=== PATIENT | female | born 1995 | race Caucasian/White ===

== ENCOUNTER 2018-07-15 12:12 | Inpatient (IN) ==
[2018-07-15 13:41] LABS: Cocaine Ur Negative (NEGATIVE); Urine Barbiturate Negative (NEGATIVE); Urine Benzodiazepines Negative (NEGATIVE); Urine Opiates Negative (NEGATIVE); Urine PCP Negative (NEGATIVE); Urine THC Negative (NEGATIVE)
[2018-07-15] MEDS ORDERED: RINGER'S SOLUTION,LACTATED 1,000 ML IV PRN (16:46)
[2018-07-15] MEDS ORDERED: RINGER'S SOLUTION,LACTATED 1,000 ML IV ONE (16:46)
[2018-07-15] MEDS ORDERED: OXYTOCIN/DEXTROSE 5%-WATER 30 UNITS/500 ML BAG IV ONE ×2 (16:46→22:38)
[2018-07-15] MEDS ORDERED: LIDOCAINE HCL 50 ML VIAL ONE (18:25)
--- NOTE | 2018-07-15 19:06 | HP ---
Chief Complaint - Chief Complaint Date of Service: 07/15/18 Time of Service: 19:00 Chief Complaint: contractions History of Present Illness: 22 yo at 38 2/7 weeks presents to L&D complaining of contractions since early this am which have increased in intensity and frequency. This complicated by anemia and HSV carrier (no outbreaks, on suppressive tx) Rh positive Rubella immune GBS negative Medical History (Updated 12/19/17 @ 14:57 by Jose Reyes DO) HSV antigen DIF positive (Chronic) Dysmenorrhea treated with oral contraceptive (Chronic) Onset Date: 09/25/14 Allergic rhinitis Onset Date: 07/31/12 Body piercing Onset Date: Unknown Genital herpes Onset Date: Unknown Pt does not remember when last outbreak was. Tattoos Onset Date: Unknown Surgical History: Surgical History (Updated 12/15/17 @ 15:02 by Naomi Long RN) History of tonsillectomy and adenoidectomy Onset Date: 2008 Family History: Family History (Updated 12/19/17 @ 13:35 by Milagro Singh RN) Mother Hypoglycemia Father Hypertension Grandmother COPD (chronic obstructive pulmonary disease) Grandfather Liver cancer Great Grandfather Social History: Preferred Language Citizen Of [place] Smoking Status Former smoker Psych History No pertinent hx (Last Updated 07/11/18 @ 10:08 by Jose Reyes DO) No Social History Section defined Review Of Systems (GEN) - Review of Systems Generalized/Overall Review: Present: No Symptoms Reported EENTM: Present: No Symptoms Reported Respiratory: Present: No Symptoms Reported Cardiac: Present: No Symptoms Reported Abdominal: Present: Other - contractions Genitourinary: Present: Other - vaginal pressure Musculoskeletal: Present: No Symptoms Reported Neurological: Present: No Symptoms Reported Skin: Present: No Symptoms Reported Endocrine: Present: No Symptoms Reported Immunizations: IMMUNIZATION HX Immunizations Up to Date Yes History of Influenza Vaccine No Hx Pneumococcal Vaccination No Allergies/Adverse Reactions: Allergies Allergy/AdvReac Type Severity Reaction Status Date / Time No Known Allergies Allergy Verified 07/11/18 09:53 Home Medications: HOME MEDICATIONS [id number] 400 mcg-om3 35 mg-dha 25 mg-epa 5 mg-fish oil chewable tablet 2 tab PO DAILY tab 12/19/17 [Last Taken Unknown] ferrous sulfate 325 mg (65 mg iron) tablet 325 mg PO DAILY tab 05/07/18 [Last Taken Unknown] loratadine 10 mg tablet 10 mg PO DAILY 06/04/18 [Last Taken Unknown] valacyclovir 1 gram tablet 1,000 mg PO DAILY #30 tab 06/19/18 [Last Taken 07/14/18 21:00] Exam - Exam Vital Signs: Vital Signs - Last Taken Temp 36.3 C 07/15/18 12:20 Pulse 92 07/15/18 12:20 Resp 18 07/15/18 12:20 BP 132/94 H 07/15/18 12:20 Pulse Ox 96 07/15/18 12:20 Constitutional: Present: Alert, Oriented x3, Cooperative, Mild distress ENT Exam: Present: hearing grossly normal Breasts: Present: Exam deferred Respiratory: Present: lungs clear, no respiratory distress Cardiovascular/Chest: Present: regular rate, rhythm, no edema Abdomen: Present: soft, no rebound tenderness, other - gravid /Rectal: Present: Other - cervix - 6/90/-1 Extremity: Present: no pedal edema, no calf tenderness Skin Exam: Present: normal color, warm/dry, no cyanosis Neurologic: Present: alert, normal mood/affect, oriented x 3 Appearance: Present: appropriate appearance, appropriate insight Eye contact: Present: cooperative Thoughts: Present: normal thought pattern Diagnostic Studies: Laboratory Results Negative (NEGATIVE) 07/15/18 13:27 Negative (NEGATIVE) 07/15/18 13:27 Ur Phencyclidine Scrn Negative (NEGATIVE) 07/15/18 13:27 Urine Amphetamine Negative (NEGATIVE) 07/15/18 13:27 U Benzodiazepines Scrn Negative (NEGATIVE) 07/15/18 13:27 Negative (NEGATIVE) 07/15/18 13:27 Negative (NEGATIVE) 07/15/18 13:27 Assessment/Plan - Assessment/Plan (1) Anemia Problem: Acute Qualifiers: Anemia type: iron deficiency Iron deficiency anemia type: inadequate dietary iron intake Qualified Code(s): D50.8 - Other iron deficiency anemias (2) Labor established Problem: Acute (3) HSV antigen DIF positive Problem: Chronic
--- NOTE | 2018-07-15 19:09 | PN ---
Subjective - Date and Time Seen Date: 07/15/18 Time: 19:07 Objective - Vitals Vitals: Last Vital Signs Temp 36.3 C 07/15/18 12:20 Pulse 92 07/15/18 12:20 Resp 18 07/15/18 12:20 BP 132/94 H 07/15/18 12:20 Pulse Ox 96 07/15/18 12:20 Patient doing very well controlling pain without epidural Vital signs stable. FHT: 130 baseline, reassuring Contractions q 13 min Cervix: 8/90/-1, AROM-clear Impression: Intrauterine at 38 2/7 weeks in labor.Briefly discussed risk/benefits/alternatives for pain control. Patient desires pudendal nerve block. Plan: Expect normal spontaneous vaginal delivery soon. Pudendal nerve block when patient gets close to delivery Assessment/Plan - Problems/Diagnosis (1) Anemia Problem: Acute Qualifiers: Anemia type: iron deficiency Iron deficiency anemia type: inadequate dietary iron intake Qualified Code(s): D50.8 - Other iron deficiency anemias (2) Labor established Problem: Acute (3) HSV antigen DIF positive Problem: Chronic
[2018-07-15] MEDS ORDERED: LIDOCAINE HCL 50 ML VIAL IJ PRN (19:27)
[2018-07-15] MEDS ORDERED: BISACODYL 10 MG SUPP.RECT RC PRN (22:38)
[2018-07-15] MEDS ORDERED: GLYCERIN/WITCH HAZEL LEAF 40 APPL BOX TP PRN (22:38)
[2018-07-15] MEDS ORDERED: oxyCODONE HCL/ACETAMINOPHEN 1 TAB TABLET PO PRN (22:38)
[2018-07-15] MEDS ORDERED: HYDROCORTISONE 30 APPL TUBE TP PRN (22:38)
[2018-07-15] MEDS ORDERED: SENNOSIDES 8.6 MG TABLET PO PRN (22:38)
[2018-07-15] MEDS ORDERED: BENZOCAINE/MENTHOL 81 SPRAY CAN TP PRN (22:38)
--- NOTE | 2018-07-15 22:41 | OR ---
Operative Report - Dictated Report Narrative: Spontaneous vaginal delivery of viable male at 2225 on 07/15/2018 with Apgars 9 and 9, weighing 3470 g in VALERI position. Cord clamping delayed approximately 1 minute Placenta delivered complete, intact, with three vessel cord Estimated blood loss: less than 50 ml Anesthesia: epidural Lacerations: First-degree vaginal and hymenal ring laceration with no repair needed History for Definition: * The number of deliveries resulting in a live the patient experienced prior to current hospitalization * The previous delivery of live twins or any live multiple gestation is considered one live event. *If primagravida or nulliparous is documented select zero for the number of previous live births. Live Events: 0
[2018-07-15] MEDS: IBUPROFEN 800 MG TABLET PO PRN (22:54)
[2018-07-15] MEDS: oxyCODONE HCL/ACETAMINOPHEN 1 TAB TABLET PO PRN (22:54)
[2018-07-15] MEDS: DOCUSATE SODIUM 100 MG CAPSULE PO SCH (23:44)
[2018-07-16] MEDS: oxyCODONE HCL/ACETAMINOPHEN 1 TAB TABLET PO PRN ×4 (01:59→20:13)
[2018-07-16] MEDS: IBUPROFEN 800 MG TABLET PO PRN ×2 (07:42→20:13)
--- NOTE | 2018-07-16 08:40 | PN ---
Subjective - Date and Time Seen Date: 07/16/18 Time: 08:40 Objective - Vitals Vitals: Last Vital Signs Temp 36.6 C 07/16/18 07:48 Pulse 74 07/16/18 07:48 Resp 18 07/16/18 07:48 BP 131/80 07/16/18 07:48 Pulse Ox 97 07/16/18 07:48 Patient denies complaints. Lochia wnl Abdomen - soft, nontender Uterus - firm, at umbilicus - 1 No calf tenderness Impression: day #1 - s/p spontaneous vaginal delivery. Plan: Continue routine care Assessment/Plan - Problems/Diagnosis (1) Anemia Problem: Acute Qualifiers: Anemia type: iron deficiency Iron deficiency anemia type: inadequate dietary iron intake Qualified Code(s): D50.8 - Other iron deficiency anemias (2) Labor established Problem: Acute (3) HSV antigen DIF positive Problem: Chronic
[2018-07-16] MEDS: DOCUSATE SODIUM 100 MG CAPSULE PO SCH ×2 (13:01→20:14)
[2018-07-16] MEDS: PRENATAL VITS96/IRON FUM/FOLIC 1 TAB TABLET PO SCH (13:03)
[2018-07-16] MEDS: FERROUS SULFATE 325 MG TABLET PO SCH (13:03)
[2018-07-17] MEDS: DOCUSATE SODIUM 100 MG CAPSULE PO SCH (08:24)
[2018-07-17] MEDS: FERROUS SULFATE 325 MG TABLET PO SCH (08:24)
[2018-07-17] MEDS: PRENATAL VITS96/IRON FUM/FOLIC 1 TAB TABLET PO SCH (08:24)
--- NOTE | 2018-07-17 08:31 | PN ---
Subjective - Date and Time Seen Date: 07/17/18 Time: 08:30 Objective - Vitals Vitals: Last Vital Signs Temp 36.6 C 07/17/18 00:49 Pulse 71 07/17/18 00:49 Resp 16 07/17/18 00:49 BP 136/76 07/17/18 00:49 Pulse Ox 95 07/17/18 00:49 Patient denies complaints. Breast-feeding Lochia wnl Abdomen - soft, nontender Uterus - firm, at umbilicus - 2 No calf tenderness Impression: day #2 - s/p spontaneous vaginal delivery. Plan: Routine discharge instructions. consultation prior to discharge Assessment/Plan - Problems/Diagnosis (1) Anemia Problem: Acute Qualifiers: Anemia type: iron deficiency Iron deficiency anemia type: inadequate tary iron intake Qualified Code(s): D50.8 - Other iron deficiency anemias (2) Labor established Problem: Acute (3) HSV antigen DIF positive Problem: Chronic
[2018-07-17 08:40] VITALS: BP 141/84
[2018-07-17] MEDS: oxyCODONE HCL/ACETAMINOPHEN 1 TAB TABLET PO PRN ×2 (13:28→16:27)
== END 2018-07-17 17:15 | disposition home or self-care (01) | DRG 806 ==
LOC: OBCLINIC 12:12 → OB 12:37
PROVIDERS: ADMIT Obstetrics & Gynecology; ATTEND Obstetrics & Gynecology
CPT/HCPCS: 59025; 80307

== ENCOUNTER 2020-05-10 08:04 | Observation (INO) ==
[2020-05-10] MEDS ORDERED: RINGER'S SOLUTION,LACTATED 1,000 ML IV ONE (08:34)
[2020-05-10] MEDS ORDERED: PENICILLIN G POTASSIUM 5 MILLIONUNT in DEXTROSE 5 % IN WATER 100 ML IV ONE ×2 (08:35)
[2020-05-10] MEDS ORDERED: TERBUTALINE SULFATE 1 MG/ML VIAL SC ONE ×2 (08:35→09:53)
[2020-05-10 09:52] LABS: Urine Appearance Clear (CLEAR); Urine Bilirubin Negative (NEGATIVE); Urine Blood 25 /ul (NEGATIVE); Urine Color Yellow; Urine Ketone Negative (NEGATIVE)
[2020-05-10 09:53] LABS: Urine Bacteria None Seen; Urine Nitrite Negative (NEGATIVE); Urine Protein Negative (NEGATIVE); Urine RBC 0-5 /hpf (0-5); Urine Specific Gravity 1.015 SP.GR. (1.005-1.010); Urine Urobilinogen Normal (NORMAL); Urine WBC 0-5 /hpf (0-5)
[2020-05-10 10:28] LABS: Cocaine Ur Negative (NEGATIVE); Urine Barbiturate Negative (NEGATIVE); Urine Benzodiazepines Negative (NEGATIVE); Urine Opiates Negative (NEGATIVE); Urine PCP Negative (NEGATIVE); Urine THC Negative (NEGATIVE)
--- NOTE | 2020-05-10 12:10 | HP ---
Chief Complaint - Chief Complaint Date of Service: 05/10/20 Time of Service: 11:58 Chief Complaint: contractions of increasing intensity History of Present Illness: 24 yo at 35w4d presents to L&D with complaint of contractions of increasi ng intensity since around 0200 this am which began shortly after having sex. She denies vaginal bleeding, LOF, trauma, N/V/F/C, or decreased FM. This complicated by anemia, 1st trimester subchorionic hemorrhage, HSV carrier (no lesions), THC use in 1st trimester. Rh positive Rubella immune GBS negative on 03/14/19, Current cx pending. Medical History (Last Reviewed 05/10/20 @ 12:01 by Jose Reyes DO) Anemia affecting (Acute) Onset Date: ~03/23/20 Subchorionic hemorrhage (Acute) 2.55cm x 0.92cm just above inner cervical os (11/07/19) Eczema (Suspected) HSV antigen DIF positive (Chronic) Allergic rhinitis Onset Date: 07/31/12 Body piercing Onset Date: Unknown Genital herpes Onset Date: Unknown Pt does not remember when last outbreak was. Tattoos Onset Date: Unknown Dysmenorrhea treated with oral contraceptive (Resolved) Onset Date: 09/25/14 Surgical History: Surgical History (Last Reviewed 05/10/20 @ 12:01 by Jose Reyes DO) History of tonsillectomy and adenoidectomy Onset Date: 2008 Family History: Family History (Last Reviewed 05/10/20 @ 12:01 by Jose Reyes DO) Mother Hypoglycemia Father Hypertension Grandmother COPD (chronic obstructive pulmonary disease) Grandfather Liver cancer Great Grandfather Social History: (Last Reviewed 05/10/20 @ 12:01 by Jose Reyes DO) Social History: adopted: No Marital status: Single household members: significant other number of children: 1 current occupational status: employed current occupation: [employer] Manager current occupational exposures/hazards: No Highest level of school completed/degree received: high school graduate Sexually Active: Yes Service: No Tobacco: Smoking Status: Never smoker Alcohol: alcohol intake: former alcohol intake frequency: a few times a month details: No alcohol since + UPT Substance Use: substance use type: marijuana Dietary Habits: caffeine: Yes Type: carbonated beverages Pets: pets and animals: cat(s) Exercise: frequency: does not exercise Mahnaz/Advent: agree to transfusion: Yes Review Of Systems (GEN) - Review of Systems Generalized/Overall Review: Present: No Symptoms Reported EENTM: Present: No Symptoms Reported Respiratory: Present: No Symptoms Reported Cardiac: Present: No Symptoms Reported Abdominal: Present: Abdominal Pain - contractions. Absent: Nausea, Vomiting, Constipation Genitourinary: Present: No Symptoms Reported Musculoskeletal: Present: No Symptoms Reported Neurological: Present: No Symptoms Reported Skin: Present: No Symptoms Reported Endocrine: Present: No Symptoms Reported Immunizations: IMMUNIZATION HX Immunizations Up to Date Yes History of Influenza Vaccine Yes Hx Pneumococcal Vaccination No Allergies/Adverse Reactions: Allergies Allergy/AdvReac Type Severity Reaction Status Date / Time No Known Allergies Allergy Verified 05/10/20 08:15 Home Medications: HOME MEDICATIONS Vits96/Iron Fum/Folic [ S] 1 tab PO DAILY 03/14/20 [Last Taken Unknown] ferrous sulfate 325 mg (65 mg iron) tablet 325 mg PO DAILY 05/05/20 [Last Taken Unknown] valacyclovir 500 mg tablet 500 mg PO BID #60 tab 05/05/20 [Last Taken 05/10/20 07:30] Exam - Exam Vital Signs: Vital Signs - Last Taken Temp 37.1 C 05/10/20 08:15 Pulse 92 05/10/20 08:15 Resp 16 05/10/20 08:15 BP 132/80 05/10/20 08:15 Pulse Ox 100 05/10/20 08:15 Constitutional: Present: Alert, Oriented x3, Cooperative, Mild distress ENT Exam: Present: hearing grossly normal Neck: Present: trachea midline. Absent: thyromegaly Back Exam: Present: no CVA tenderness Breasts: Present: Exam deferred Respiratory: Present: lungs clear, no respiratory distress Cardiovascular/Chest: Present: normal peripheral pulses, regular rate, rhythm, no edema Abdomen: Present: soft, nontender, no rebound tenderness /Rectal: Present: Other - Cervix changed from 1-2 to 3-4cm over the course of 2 hours per nurse's exam. Extremity: Present: non-tender, no pedal edema, no calf tenderness Skin Exam: Present: normal color, warm/dry, no cyanosis Lymphatic: Present: no adenopathy Neurologic: Present: alert, normal mood/affect, oriented x 3 Appearance: Present: appropriate appearance, appropriate insight, no memory impairment Eye contact: Present: cooperative, good eye contact Thoughts: Present: normal thought pattern, normal mood /affect Diagnostic Studies: Abnormal Lab Results 05/10/20 Range/Units 08:21 Urine Blood 25 H (NEGATIVE) /ul Laboratory Results Urine Color Yellow 05/10/20 08:21 Urine Appearance Clear (CLEAR) 05/10/20 08:21 Urine pH 7.0 pH (5.0-7.0) 05/10/20 08:21 Ur Specific [place] 1.015 SP.GR. (1.005-1.010) 05/10/20 08:21 Urine Protein Negative mg/dL (NEGATIVE) 05/10/20 08:21 Urine Glucose (UA) Negative mg/dL (NEGATIVE) 05/10/20 08:21 Urine Ketones Negative mg/dL (NEGATIVE) 05/10/20 08:21 Urine Blood 25 /ul (NEGATIVE) H 05/10/20 08:21 Urine Nitrate Negative (NEGATIVE) 05/10/20 08:21 Urine Bilirubin Negative mg/dl (NEGATIVE) 05/10/20 08:21 Urine Urobilinogen Normal EU/dl (NORMAL) 05/10/20 08:21 Ur Leukocyte Esterase Negative /ul (NEGATIVE) 05/10/20 08:21 Urine RBC 0-5 /hpf (0-5) 05/10/20 08:21 Urine WBC 0-5 /hpf (0-5) 05/10/20 08:21 Ur Epithelial Cells 0-5 /hpf (0-5) 05/10/20 08:21 Urine Bacteria None seen (NONE) 05/10/20 08:21 Urine Opiates Screen Negative (NEGATIVE) 05/10/20 10:16 Barbiturate Screen Negative (NEGATIVE) 05/10/20 10:16 Ur Phencyclidine Scrn Negative (NEGATIVE) 05/10/20 10:16 Urine Amphetamine Negative (NEGATIVE) 05/10/20 10:16 U Benzodiazepines Scrn Negative (NEGATIVE) 05/10/20 10:16 Urine Cocaine Screen Negative (NEGATIVE) 05/10/20 10:16 Urine Marijuana (THC) Negative (NEGATIVE) 05/10/20 10:16 Assessment/Plan - Assessment/Plan (1) labor Assessment: Patient responds temporarily with terbutaline, but continues to have increasing intensity of contractions. Will attempt transfer to [facility] if patient remains stable enough for transfer. Started on IV PCN for GBS prophylaxis - received 5 million units at 0854. GBS cx pending. Problem: Acute Qualifiers: labor trimester: third trimester labor delivery status: without delivery Qualified Code(s): O60.03 - labor without delivery, third trimester (2) Marijuana use Assessment: UDS negative on admission today. Problem: Resolved (3) Anemia affecting Problem: Chronic Qualifiers: Trimester: third trimester Qualified Code(s): O99.013 - Anemia complicating , third trimester (4) Subchorionic hemorrhage Problem: Resolved Qualifiers: Fetus number: single or unspecified fetus Trimester: first trimester Qualified Code(s): O41.8X10 - Other specified disorders of amniotic fluid and membranes, first trimester, not applicable or unspecified; O46.8X1 - Other antepartum hemorrhage, first trimester (5) HSV antigen DIF positive Assessment: Taking Valtrex 500mg BID for prophylaxis, last dose this am Problem: Chronic
[2020-05-10] MEDS ORDERED: PENICILLIN G POTASSIUM 2.5 MILLIONUNT in DEXTROSE 5 % IN WATER 100 ML IV ONE ×2 (12:45)
[2020-05-10] MEDS ORDERED: RINGER'S SOLUTION,LACTATED 1,000 ML IV PRN (13:04)
--- NOTE | 2020-05-10 13:04 | PN ---
Progess Note - Interim Date: 05/10/20 Time: 12:58 Narrative: 05/10/20 12:58 Pt states contractions are becoming less painful. Vitals stable, P 113, BP 119/72 Abd - soft, NT Cervix 4/75/-1, very posterior FHT 150, reassuring A/P: labor - symptoms improving, but do to advanced cervical dilation in a multiparous patient will defer transfer to [facility]. Continue IV PCN till GBS cx back or contractions resolve. Will try a dose of nifedipine.
[2020-05-10] MEDS ORDERED: BETAMETHASONE ACETATE,SOD PHOS 6 MG/ML VIAL IM SCH (13:15)
[2020-05-10] MEDS ORDERED: NIFEdipine 10 MG CAPSULE PO SCH (13:15)
[2020-05-10] MEDS ORDERED: PRENATAL VITS96/IRON FUM/FOLIC 1 TAB TABLET PO SCH (17:00)
[2020-05-10] MEDS ORDERED: FERROUS SULFATE 325 MG TABLET PO SCH (17:00)
[2020-05-10] MEDS ORDERED: PENICILLIN G POTASSIUM 2.5 MILLIONUNT in DEXTROSE 5 % IN WATER 100 ML IV SCH ×2 (17:13)
[2020-05-10] MEDS ORDERED: NIFEdipine 10 MG CAPSULE PO ONE (18:32)
[2020-05-10 18:39] VITALS: BP 108/64
[2020-05-10] MEDS ORDERED: valACYclovir HCL 500 MG TABLET PO SCH (21:00)
--- NOTE | 2020-05-11 08:54 | DS ---
OB Discharge Summary (1) labor Status: Resolved Qualifiers: labor trimester: third trimester labor delivery status: without delivery Qualified Code(s): O60.03 - labor without delivery, third trimester (2) Marijuana use Status: Resolved (3) Anemia affecting Status: Chronic Qualifiers: Trimester: third trimester Qualified Code(s): O99.013 - Anemia complicating , third trimester (4) Subchorionic hemorrhage Status: Resolved Qualifiers: Fetus number: single or unspecified fetus Trimester: first trimester Qualified Code(s): O41.8X10 - Other specified disorders of amniotic fluid and membranes, first trimester, not applicable or unspecified; O46.8X1 - Other antepartum hemorrhage, first trimester (5) HSV antigen DIF positive Status: Chronic :: 3 Para:: 1 Gestational weeks:: 35 Gestational days:: 4 Intrapartum Procedures: Undelivered, Other - IV antibiotics, tocolytics, and betamethsone given. Intensive monitoring. /OP Complications: No Complications Discharge Diagnosis: Premature Labor - Discharge Information Date of Discharge: 05/10/20 Hospital Course: 24 yo at 35w4d was admitted for labor which began shortly after having sexual intercourse. She made cervical change from 1-2/60/-2 to 4/75/-1 over the course of 3 hours but made no further cervical change for the next 8+ hours. She received 2 doses of terbutaline 0.25mg SQ and later nifedipine 30mg PO x 1 followed 4 hours later by 10mg PO x 1. Her contractions decreased in intensity and frequency and with no further cervical change, she was discharged to home in stable condition with instructions to f/u on 05/11/20 1330 for her 2nd dose of betamethasone. Discharge Location: Home Disposition: Home self-care Condition: Good Activity on Discharge:: Activity as tolerated, Pelvic Rest Discharge Diet: General/regular food Complete Home Medications List: Complete Home Medication List: Vits96/Iron Fum/Folic [ S] 1 tab PO DAILY 03/14/20 ferrous sulfate 325 mg (65 mg iron) tablet 325 mg PO DAILY 05/05/20 valacyclovir 500 mg tablet 500 mg PO BID #60 tab 05/05/20 - Plan Discharge to:: Home Follow up in office in:: Other - 1 day. Follow Up Appointment:: 05/11/20 1300 - Information Infant Complications: None
== END 2020-05-10 20:40 | disposition home or self-care (01) ==
LOC: OB 08:04 → OBCLINIC 08:04
PROVIDERS: ADMIT Obstetrics & Gynecology; ATTEND Obstetrics & Gynecology
DX: B00.9 Herpesviral infection, unspecified; O60.03 Preterm labor without delivery, third trimester; Z3A.35 35 weeks gestation of pregnancy; O99.013 Anemia complicating pregnancy, third trimester

== ENCOUNTER 2020-06-03 00:01 | Inpatient (IN) ==
[2020-06-03] MEDS ORDERED: ONDANSETRON 4 MG TAB.RAPDIS PO PRN (00:14)
[2020-06-03] MEDS ORDERED: OXYTOCIN/0.9 % SODIUM CHLORIDE 30 UNITS/500 ML BAG IV ONE ×2 (00:14→07:39)
[2020-06-03] MEDS ORDERED: RINGER'S SOLUTION,LACTATED 1,000 ML IV ONE (00:14)
[2020-06-03 01:21] LABS: Cocaine Ur Negative (NEGATIVE); Urine Barbiturate Negative (NEGATIVE); Urine Benzodiazepines Negative (NEGATIVE); Urine Opiates Negative (NEGATIVE); Urine PCP Negative (NEGATIVE); Urine THC Negative (NEGATIVE)
--- NOTE | 2020-06-03 06:40 | HP ---
Chief Complaint - Chief Complaint Date of Service: 06/03/20 Time of Service: 06:18 Chief Complaint: elective induction of labor History of Present Illness: 24 yo at 39 wks admitted for elective induction of labor. This complicated by anemia, eczema, HSV carrier, PTL at 35wks, and THC use in 1st trimester. Rh positive Rubella immune GBS negative Medical History (Last Reviewed 06/03/20 @ 06:30 by Jose Reyes DO) labor (Resolved) Marijuana use (Resolved) Anemia affecting (Chronic) Onset Date: ~03/23/20 Subchorionic hemorrhage (Resolved) 2.55cm x 0.92cm just above inner cervical os (11/07/19) Eczema (Suspected) HSV antigen DIF positive (Chronic) Allergic rhinitis Onset Date: 07/31/12 Body piercing Onset Date: Unknown Genital herpes Onset Date: Unknown Pt does not remember when last outbreak was. Tattoos Onset Date: Unknown Dysmenorrhea treated with oral contraceptive (Resolved) Onset Date: 09/25/14 Surgical History: Surgical History (Last Reviewed 06/03/20 @ 06:30 by Jose Reyes DO) History of tonsillectomy and adenoidectomy Onset Date: 2008 Family History: Family History (Last Reviewed 06/03/20 @ 06:30 by Jose Reyes DO) Mother Hypoglycemia Father Hypertension Grandmother COPD (chronic obstructive pulmonary disease) Grandfather Liver cancer Great Grandfather Social History: (Last Reviewed 06/03/20 @ 06:30 by Jose Reyes DO) Social History: adopted: No Marital status: Single household members: significant other number of children: 1 current occupational status: 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/hazards: No Highest level of school completed/degree received: high school graduate Sexually Active: Yes Service: No Tobacco: Smoking Status: Never smoker Alcohol: alcohol intake: former alcohol intake frequency: a few times a month details: No alcohol since + UPT Substance Use: substance use type: marijuana Dietary Habits: caffeine: Yes Type: carbonated beverages Pets: pets and animals: cat(s) Exercise: frequency: does not exercise Mahnaz/Zoroastrian: agree to transfusion: Yes Review Of Systems (GEN) - Review of Systems Generalized/Overall Review: Present: No Symptoms Reported EENTM: Present: No Symptoms Reported Respiratory: Present: No Symptoms Reported Cardiac: Present: No Symptoms Reported Abdominal: Present: No Symptoms Reported Genitourinary: Present: No Symptoms Reported Musculoskeletal: Present: No Symptoms Reported Neurological: Present: No Symptoms Reported Skin: Present: No Symptoms Reported Endocrine: Present: No Symptoms Reported Immunizations: IMMUNIZATION HX Immunizations Up to Date Yes History of Influenza Vaccine Yes Hx Pneumococcal Vaccination No Allergies/Adverse Reactions: Allergies Allergy/AdvReac Type Severity Reaction Status Date / Time No Known Allergies Allergy Verified 06/02/20 13:57 Home Medications: HOME MEDICATIONS Vits96/Iron Fum/Folic [ S] 1 tab PO DAILY 03/14/20 [Last Taken 06/02/20 08:00] ferrous sulfate 325 mg (65 mg iron) tablet 325 mg PO DAILY 05/05/20 [Last Taken 06/02/20 08:00] valacyclovir 500 mg tablet 500 mg PO BID #60 tab 05/05/20 [Last Taken 06/02/20 08:00] breast pump See Rx Instructions .ROUTE .MEDSUPPLY #1 ea 05/26/20 [Last Taken Unknown] Exam - Exam Vital Signs: Vital Signs - Last Taken Temp 37.0 C 06/03/20 01:00 Pulse 103 H 06/03/20 01:00 Resp 16 06/03/20 01:00 BP 121/70 06/03/20 01:00 Pulse Ox 96 06/03/20 01:00 Constitutional: Present: Alert, Oriented x3, Cooperative ENT Exam: Present: hearing grossly normal Neck: Present: trachea midline. Absent: thyromegaly Breasts: Present: Exam deferred Respiratory: Present: lungs clear Cardiovascular/Chest: Present: normal peripheral pulses, regular rate, rhythm, no edema Abdomen: Present: Normal bowel sounds, soft, no rebound tenderness, other - gravid /Rectal: Present: Other - Cervix 4/60/-2 Extremity: Present: no pedal edema, no calf tenderness Skin Exam: Present: normal color, warm/dry, no cyanosis Lymphatic: Present: no adenopathy Neurologic: Present: alert, normal mood/affect Appearance: Present: appropriate appearance, appropriate insight Eye contact: Present: cooperative Thoughts: Present: normal thought pattern, normal mood /affect Diagnostic Studies: Laboratory Results Urine Opiates Screen Negative (NEGATIVE) 06/03/20 00:21 Barbiturate Screen Negative (NEGATIVE) 06/03/20 00:21 Ur Phencyclidine Scrn Negative (NEGATIVE) 06/03/20 00:21 Urine Amphetamine Negative (NEGATIVE) 06/03/20 00:21 U Benzodiazepines Scrn Negative (NEGATIVE) 06/03/20 00:21 Urine Cocaine Screen Negative (NEGATIVE) 06/03/20 00:21 Urine Marijuana (THC) Negative (NEGATIVE) 06/03/20 00:21 Assessment/Plan - Assessment/Plan (1) Elective induction of labor planned Assessment: Admit for pitocin induction of labor. Epidural PRN. Problem: Acute (2) Marijuana use Problem: Resolved (3) Anemia affecting Problem: Chronic Qualifiers: Trimester: third trimester Qualified Code(s): O99.013 - Anemia complicating , third trimester (4) Eczema Problem: Inactive Qualifiers: (5) HSV antigen DIF positive Problem: Chronic (6) labor Problem: Resolved Qualifiers: labor trimester: third trimester labor delivery status: without delivery Qualified Code(s): O60.03 - labor without delivery, third trimester
[2020-06-03] MEDS ORDERED: oxyCODONE HCL/ACETAMINOPHEN 1 TAB TABLET ONE (07:36)
[2020-06-03] MEDS ORDERED: IBUPROFEN 800 MG TABLET ONE (07:36)
--- NOTE | 2020-06-03 07:36 | PN ---
Progess Note - Interim Date: 06/03/20 Time: 06:10 Narrative: 06/03/20 07:35 Patient rating contractions 8 out of 10 Vital signs stable. Pitocin at 4 mu/min. FHT: 140 baseline, reassuring contractions q 2-3 min Cervix: 7-8/80/-2, AROM-clear Impression: Intrauterine at 39 weeks in labor Plan: Continue present plan
--- NOTE | 2020-06-03 07:37 | OR ---
Operative Report - Dictated Report Narrative: Spontaneous vaginal delivery of viable male at 0721 on 06/03/2020 with Apgars 5 and 8, weighing 3622 g in JIGAR position. Cord clamping delayed approximately 30 seconds Placenta delivered complete, intact, with three vessel cord Estimated blood loss: Less than 50 ml Anesthesia: None Lacerations: None
[2020-06-03] MEDS ORDERED: IBUPROFEN 800 MG TABLET PO PRN (07:39)
[2020-06-03] MEDS ORDERED: SENNOSIDES 8.6 MG TABLET PO PRN (07:39)
[2020-06-03] MEDS ORDERED: BENZOCAINE/MENTHOL 81 SPRAY CAN TP PRN (07:39)
[2020-06-03] MEDS ORDERED: GLYCERIN/WITCH HAZEL LEAF 40 APPL BOX TP PRN (07:39)
[2020-06-03] MEDS ORDERED: HYDROCORTISONE 30 APPL TUBE TP PRN (07:39)
[2020-06-03] MEDS ORDERED: BISACODYL 10 MG SUPP.RECT RC PRN (07:39)
[2020-06-03] MEDS ORDERED: [UNRECOGNIZED DRUG - SUPPLY] TP PRN (07:45)
[2020-06-03] MEDS: IBUPROFEN 800 MG TABLET PO PRN ×2 (07:48→18:27)
[2020-06-03] MEDS: oxyCODONE HCL/ACETAMINOPHEN 1 TAB TABLET PO PRN ×2 (07:48→23:06)
[2020-06-03] MEDS: FERROUS SULFATE 325 MG TABLET PO SCH (12:25)
[2020-06-03] MEDS: DOCUSATE SODIUM 100 MG CAPSULE PO SCH ×2 (12:25→22:39)
[2020-06-03] MEDS: PRENATAL VITS96/IRON FUM/FOLIC 1 TAB TABLET PO SCH (12:26)
[2020-06-04] MEDS: oxyCODONE HCL/ACETAMINOPHEN 1 TAB TABLET PO PRN ×2 (07:35→20:39)
--- NOTE | 2020-06-04 08:02 | PN ---
Subjective - Date and Time Seen Date: 06/04/20 Time: 07:15 Objective - Vitals Vitals: Last Vital Signs Temp 36.5 C 06/04/20 01:24 Pulse 68 06/04/20 01:24 Resp 16 06/04/20 01:24 BP 111/59 06/04/20 01:24 Pulse Ox 98 06/04/20 01:24 Patient denies complaints. Breast-feeding. Lochia wnl abdomen - soft, nontender Uterus -firm, at umbilicus - 1 No calf tenderness Impression: day #1 - s/p spontaneous vaginal delivery. Plan: Continue routine care Assessment/Plan - Problems/Diagnosis (1) Elective induction of labor planned Problem: Acute (2) Marijuana use Problem: Resolved (3) Anemia affecting Problem: Chronic Qualifiers: Trimester: third trimester Qualified Code(s): O99.013 - Anemia complicating , third trimester (4) Eczema Problem: Inactive Qualifiers: (5) HSV antigen DIF positive Problem: Chronic (6) labor Problem: Resolved Qualifiers: labor trimester: third trimester labor delivery status: without delivery Qualified Code(s): O60.03 - labor without delivery, third trimester
[2020-06-04] MEDS: DOCUSATE SODIUM 100 MG CAPSULE PO SCH (13:56)
[2020-06-04] MEDS: PRENATAL VITS96/IRON FUM/FOLIC 1 TAB TABLET PO SCH (13:57)
[2020-06-04] MEDS: FERROUS SULFATE 325 MG TABLET PO SCH (13:57)
[2020-06-04] MEDS: IBUPROFEN 800 MG TABLET PO PRN (20:39)
--- NOTE | 2020-06-04 20:43 | DS ---
OB Discharge Summary (1) Elective induction of labor planned Status: Resolved (2) Marijuana use Status: Resolved (3) Anemia affecting Status: Chronic Qualifiers: Trimester: third trimester Qualified Code(s): O99.013 - Anemia complicating , third trimester (4) Eczema Status: Inactive Qualifiers: (5) HSV antigen DIF positive Status: Chronic (6) labor Status: Resolved Qualifiers: labor trimester: third trimester labor delivery status: without delivery Qualified Code(s): O60.03 - labor without delivery, third trimester Delivery Date: 06/03/20 Delivery Time: 07:21 :: 3 Para:: 2 Gestational weeks:: 39 Gestational days:: 0 Intrapartum Procedures: Spontaneous Vaginal Delivery /OP Complications: No Complications Discharge Diagnosis: Term -Delivered - Discharge Information Date of Discharge: 06/05/20 Hospital Course: 24 yo G3 now P2012 admitted at 39 weeks for elective pitocin induction of labor. Her labor and course were uncomplicated. Discharge Location: Home Disposition: Home self-care Condition: Good Activity on Discharge:: Activity as tolerated, Pelvic Rest Discharge Diet: General/regular food Prescriptions (Any new or edited meds): Ibuprofen [Motrin] 200 - 800 mg PO Q6H PRN #100 tab PRN Reason: Pain Complete Home Medications List: Complete Home Medication List: Vits96/Iron Fum/Folic [ S] 1 tab PO DAILY 03/14/20 ferrous sulfate 325 mg (65 mg iron) tablet 325 mg PO DAILY 05/05/20 breast pump See Rx Instructions .ROUTE .MEDSUPPLY #1 ea 05/26/20 Ferrous Sulfate 325 mg PO DAILY tab 06/04/20 Ibuprofen [Motrin] 200 - 800 mg PO Q6H PRN #100 tab 06/04/20 - Plan Discharge to:: Home Follow up in office in:: 3-4 weeks - Information Weight (Grams): 3,622 Sex: Male Score 1 min: 5 Score 5 min: 8 Infant Complications: Other Other Complications: respiratory distress
--- NOTE | 2020-06-05 07:28 | PN ---
Subjective - Date and Time Seen Date: 06/05/20 Time: 07:28 Objective - Vitals Vitals: Last Vital Signs Temp 36.6 C 06/04/20 23:36 Pulse 84 06/04/20 23:36 Resp 16 06/04/20 23:36 BP 120/74 06/04/20 23:36 Pulse Ox 98 06/04/20 23:36 Patient denies complaints. Breast-feeding Lochia wnl abdomen - soft, nontender Uterus -firm, at umbilicus - 2 No calf tenderness Impression: day #2 - s/p spontaneous vaginal delivery. Plan: Routine discharge instructions Assessment/Plan - Problems/Diagnosis (1) Elective induction of labor planned Problem: Resolved (2) Marijuana use Problem: Resolved (3) Anemia affecting Problem: Chronic Qualifiers: Trimester: third trimester Qualified Code(s): O99.013 - Anemia complicating , third trimester (4) Eczema Problem: Inactive Qualifiers: (5) HSV antigen DIF positive Problem: Chronic (6) labor Problem: Resolved Qualifiers: labor trimester: third trimester labor delivery status: without delivery Qualified Code(s): O60.03 - labor without delivery, third trimester
[2020-06-05] MEDS: DOCUSATE SODIUM 100 MG CAPSULE PO SCH (10:15)
[2020-06-05] MEDS: PRENATAL VITS96/IRON FUM/FOLIC 1 TAB TABLET PO SCH (10:15)
[2020-06-05] MEDS: FERROUS SULFATE 325 MG TABLET PO SCH (10:15)
[2020-06-05 12:07] VITALS: BP 124/69
== END 2020-06-05 11:30 | disposition home or self-care (01) | DRG 806 ==
LOC: OB 00:06
PROVIDERS: ADMIT Obstetrics & Gynecology; ATTEND Obstetrics & Gynecology